=== PATIENT | male | born 2000 | race Caucasian/White ===

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

== ENCOUNTER → 2022-01-09 | Outpatient (CLI) | payer OTHER ==
[2022-01-09 15:38] LABS: Chol/HDL Ratio 3.32 Ratio; LDL Cholesterol,Calculated 91.4 mg/dL (0.0-131.0); VLDL Calculation 10.58 mg/dL (5.00-40.00)
== END | disposition home or self-care (01) ==
LOC: LABWHC1 07:35
DX: E10.9 Type 1 diabetes mellitus without complications (principal); F71 Moderate intellectual disabilities; F91.8 Other conduct disorders
CPT/HCPCS: 36415; 80061; 83036; 84145; 84443

== ENCOUNTER 2022-09-12 15:57 | Inpatient (IN) | payer BC, OTHER ==
[2022-09-12 16:16] LABS: Glucose,Whole Blood 507 mg/dL (70-110)
[2022-09-12] MEDS ORDERED: SODIUM CHLORIDE 0.9% 1,000 ML IV ONE ×2 (16:40→16:41)
[2022-09-12] MEDS ORDERED: ONDANSETRON 4 MG/2 ML VIAL IVP STA (16:49)
--- NOTE | 2022-09-12 17:13 | ED ---
General Adult HPI - General Chief complaint: Recheck/Abnormal Lab/Rx Stated complaint: Vomiting,poss DKA Time Seen by Provider: 09/12/22 16:05 Source: family Mode of arrival: ambulatory Limitations: no limitations - History of Present Illness Initial comments: 22-year-old male with past medical history of ODD, developmental delay, type 1 diabetes presents to the emergency department with hyperglycemia. Mother is at bedside and provides the history. States that he was with his grandma out of state for the past week. He just returned today. Grandma mentioned that his sugars have been running high yesterday. When the patient got home today mother noted that there was a kink in the insulin pump tubing. She changed his CBG monitor as well as his insulin pump tubing and it appeared that his pump is working fine. His glucose was elevated in the 500s. He has had multiple episodes of nausea and vomiting. He denies having any pain however the patient is mostly nonverbal. Patient has a hard time communicating his feelings. No fevers. He has been hospitalized for hyperglycemia previously. HPI is relatively limited. - Related Data Home Medications Medication Instructions Recorded Confirmed Gabapentin [Neurontin] 400 mg PO BID 09/12/22 09/12/22 Insulin Aspart (For Pump) [NovoLOG 0.01 unit SQ-PUMP CONTINUOUS 09/12/22 09/12/22 (For Pump)] OLANZapine [ZyPREXA] 15 mg PO HS 09/12/22 09/12/22 guanFACINE HCL [guanFACINE HCL ER] 4 mg PO DAILY 09/12/22 09/12/22 hydrOXYzine pamoate [Vistaril] 25 mg PO TID PRN 09/12/22 09/12/22 Allergies Allergy/AdvReac Type Severity Reaction Status Date / Time fentanyl Allergy Hallucinati Verified 09/12/22 16:33 ons prednisone AdvReac Increases Verified 09/12/22 16:34 blood sugar Review of Systems ROS Statement: Those systems with pertinent positive or pertinent negative responses have been documented in the HPI. ROS Other: All systems not noted in ROS Statement are negative. Past Medical History Past Medical History: Diabetes Mellitus Additional Past Medical History / Comment(s): ODD History of Any Multi-Drug Resistant Organisms: None Reported Past Surgical History: No Surgical Hx Reported Past Psychological History: No Psychological Hx Reported Smoking Status: Never smoker Past Alcohol Use History: None Reported Past Drug Use History: None Reported - Past Family History Mother Additional Family Medical History / Comment(s): diverticulosis Father Family Medical History: No Reported History General Exam Limitations: physical limitation General appearance: alert, in no apparent distress Head exam: Present: atraumatic, normocephalic, normal inspection Eye exam: Present: normal appearance, PERRL, EOMI. Absent: scleral icterus, conjunctival injection, periorbital swelling ENT exam: Present: normal exam, mucous membranes moist Respiratory exam: Present: normal lung sounds bilaterally. Absent: respiratory distress, wheezes, rales, rhonchi, stridor Cardiovascular Exam: Present: regular rate, normal rhythm, normal heart sounds. Absent: systolic murmur, diastolic murmur, rubs, gallop, clicks GI/Abdominal exam: Present: soft, normal bowel sounds. Absent: distended, tenderness, guarding, rebound, rigid Neurological exam: Present: alert Skin exam: Present: warm, dry, intact, normal color. Absent: rash Course Vital Signs 09/12/22 09/12/22 09/12/22 16:01 17:52 18:37 Temperature 98.4 F Pulse Rate 89 103 H 98 Respiratory 20 18 18 Rate Blood Pressure 110/65 112/60 110/64 O2 Sat by Pulse 99 99 100 Oximetry EKG Findings - EKG Comments: EKG Findings:: EKG demonstrates sinus rhythm with a rate of 99. [place] 165. QRS 106. QTC of 415. Inverted T-wave ST depression V4 through V6, 2, 3, aVF. Medical Decision Making - Medical Decision Making Was pt. sent in by a medical professional or institution (, PA, HARNESS MENDER, urgent care, hospital, or custodial...) When possible be specific @ -No Did you speak to anyone other than the patient for history (EMS, parent, family, police, friend...)? What history was obtained from this source @ -Patient's mother provides a history Did you review nursing and triage notes (agree or disagree)? Why? @ -I reviewed and agree with nursing and triage notes Were old charts reviewed (outside hosp., previous admission, EMS record, old EKG, old radiological studies, urgent care reports/EKG's, custodial records)? Report findings @ -No old charts were reviewed Differential Diagnosis (chest pain, altered mental status, abdominal pain women, abdominal pain men, vaginal bleeding, weakness, fever, dyspnea, syncope, headache, dizziness, GI bleed, back pain, seizure, CVA, palpatations, mental health, musculoskeletal)? @ -Differential Abdominal Pain Men: Appendicitis, cholecystitis, diverticulosis, ischemic bowel, pancreatitis, hepatitis, UTI, gastroenteritis, AAA, incarcerated hernia, bowel obstruction, constipation, inflammatory bowel, hepatitis, peptic ulcer disease, splenic infarction, perforated viscus, testicular torsion, this is not meant to be an all-inclusive list EKG interpreted by me (3pts min.). @ -Yes X-rays interpreted by me (1pt min.). @ -None done CT interpreted by me (1pt min.). @ -None done U/S interpreted by me (1pt. min.). @ -None done What testing was considered but not performed or refused? (CT, X-rays, U/S, labs)? Why? @ -None What meds were considered but not given or refused? Why? @ -None Did you discuss the management of the patient with other professionals (professionals i.e. Dr., PA, HARNESS MENDER, lab, RT, psych nurse, perinatal social worker, buddhist monk, teacher, promotions officer, bilingual patient support caseworker)? Give summary @ -Admitting team, Radha from [facility] Was smoking cessation discussed for >3mins.? @ -No Was critical care preformed (if so, how long)? @ -Yes, 35 minutes for management of insulin drip Were there social determinants of health that impacted care today? How? (Homelessness, low income, unemployed, alcoholism, drug addiction, transportation, low edu. Level, literacy, decrease access to med. care, prison, rehab)? @ -No Was there de-escalation of care discussed even if they declined (Discuss DNR or withdrawal of care, Hospice)? DNR status @ -No What co-morbidities impacted this encounter? (DM, HTN, Smoking, COPD, CAD, Cancer, CVA, ARF, Chemo, Hep., AIDS, mental health diagnosis, sleep apnea, morbid obesity)? @ -Type 1 diabetes mellitus Was patient admitted / discharged? Hospital course, mention meds given and route, prescriptions, significant lab abnormalities, going to OR and other pertinent info. @ -Upon arrival patient is placed into room 9. Thorough history and physical exam is performed. Patient's insulin pump is removed from his body. IV is established laboratory studies are conducted. Patient does have an elevated glucose of 507. He is given a 2 L bolus of normal saline. Laboratory studies reveal a white blood cell count of 25.6. Anion gap is 23. CO2 is low at 19. Lactic acid 5.9. Pt is acetone positive. He does meet all components for DKA. Insulin drip is ordered at this time. Mother was agreeable to admission. Spoke with Radha from [facility] who agreed to admit the patient Undiagnosed new problem with uncertain prognosis? @ -No Drug Therapy requiring intensive monitoring for toxicity (Heparin, Nitro, Insulin, Cardizem)? @ -Insulin drip Were any procedures done? @ -No Diagnosis/symptom? @ -Acute nausea and vomiting, acute DKA Acute, or Chronic, or Acute on Chronic? @ -Acute Uncomplicated (without systemic symptoms) or Complicated (systemic symptoms)? @ -Complicated Side effects of treatment? @ -Hypoglycemia Exacerbation, Progression, or Severe Exacerbation? @ -No Poses a threat to life or bodily function? How? (Chest pain, USA, NM, pneumonia, PE, COPD, DKA, ARF, appy, cholecystitis, CVA, Diverticulitis, Homicidal, Suicidal, threat to staff... and all critical care pts) @ -Yes - Lab Data Result diagrams: 09/13/22 08:43 09/13/22 08:43 Lab Results 09/12/22 09/12/22 09/12/22 Range/Units 16:14 16:42 16:42 WBC 25.6 H (3.8-10.6) k/uL RBC 4.76 (4.30-5.90) m/uL Hgb 13.5 (13.0-17.5) gm/dL Hct 41.9 (39.0-53.0) % MCV 87.9 (80.0-100.0) fL MCH 28.4 (25.0-35.0) pg MCHC 32.3 (31.0-37.0) g/dL RDW 13.1 (11.5-15.5) % Plt Count 397 (150-450) k/uL MPV 8.1 Neutrophils % 91 % Lymphocytes % 3 % Monocytes % 5 % Eosinophils % 0 % Basophils % 0 % Neutrophils # 23.4 H (1.3-7.7) k/uL Lymphocytes # 0.8 L (1.0-4.8) k/uL Monocytes # 1.2 H (0-1.0) k/uL Eosinophils # 0.1 (0-0.7) k/uL Basophils # 0.1 (0-0.2) k/uL Sodium (137-145) mmol/L Potassium (3.5-5.1) mmol/L Chloride (98-107) mmol/L Carbon Dioxide (22-30) mmol/L Anion Gap mmol/L BUN (9-20) mg/dL Creatinine (0.66-1.25) mg/dL Est GFR (CKD-EPI)AfAm (>60 ml/min/1.73 sqM) Est GFR (CKD-EPI)NonAf (>60 ml/min/1.73 sqM) Glucose (74-99) mg/dL POC Glucose (mg/dL) 507 H (70-110) mg/dL POC Glu Cash Manager Liborio Gonzalez Lactic Ac Sepsis Rflx Plasma Lactic Acid Shahriar (0.7-2.0) mmol/L Calcium (8.4-10.2) mg/dL Total Bilirubin (0.2-1.3) mg/dL AST (17-59) U/L ALT (4-49) U/L Alkaline Phosphatase (38-126) U/L Total Protein (6.3-8.2) g/dL Albumin (3.5-5.0) g/dL Urine Color Light Yellow Urine Appearance Clear (Clear) Urine pH 5.0 (5.0-8.0) Ur Specific [place] 1.024 (1.001-1.035) Urine Protein Negative (Negative) Urine Glucose (UA) 4+ H (Negative) Urine Ketones 3+ H (Negative) Urine Blood Negative (Negative) Urine Nitrite Negative (Negative) Urine Bilirubin Negative (Negative) Urine Urobilinogen <2.0 (<2.0) mg/dL Ur Leukocyte Esterase Negative (Negative) Acetone, Qual (Negative) 09/12/22 09/12/22 09/12/22 Range/Units 16:42 16:42 18:15 WBC (3.8-10.6) k/uL RBC (4.30-5.90) m/uL Hgb (13.0-17.5) gm/dL Hct (39.0-53.0) % MCV (80.0-100.0) fL MCH (25.0-35.0) pg MCHC (31.0-37.0) g/dL RDW (11.5-15.5) % Plt Count (150-450) k/uL MPV Neutrophils % % Lymphocytes % % Monocytes % % Eosinophils % % Basophils % % Neutrophils # (1.3-7.7) k/uL Lymphocytes # (1.0-4.8) k/uL Monocytes # (0-1.0) k/uL Eosinophils # (0-0.7) k/uL Basophils # (0-0.2) k/uL Sodium 132 L (137-145) mmol/L Potassium 4.8 (3.5-5.1) mmol/L Chloride 90 L (98-107) mmol/L Carbon Dioxide 19 L (22-30) mmol/L Anion Gap 23 mmol/L BUN 29 H (9-20) mg/dL Creatinine 0.91 (0.66-1.25) mg/dL Est GFR (CKD-EPI)AfAm >90 (>60 ml/min/1.73 sqM) Est GFR (CKD-EPI)NonAf >90 (>60 ml/min/1.73 sqM) Glucose 562 H* (74-99) mg/dL POC Glucose (mg/dL) (70-110) mg/dL POC Glu Cash Manager ID Lactic Ac Sepsis Rflx Y Plasma Lactic Acid Shahriar 5.9 H* (0.7-2.0) mmol/L Calcium 9.9 (8.4-10.2) mg/dL Total Bilirubin 1.4 H (0.2-1.3) mg/dL AST 29 (17-59) U/L ALT 43 (4-49) U/L Alkaline Phosphatase 254 H (38-126) U/L Total Protein 9.3 H (6.3-8.2) g/dL Albumin 5.2 H (3.5-5.0) g/dL Urine Color Urine Appearance (Clear) Urine pH (5.0-8.0) Ur Specific [place] (1.001-1.035) Urine Protein (Negative) Urine Glucose (UA) (Negative) Urine Ketones (Negative) Urine Blood (Negative) Urine Nitrite (Negative) Urine Bilirubin (Negative) Urine Urobilinogen (<2.0) mg/dL Ur Leukocyte Esterase (Negative) Acetone, Qual Positive (Negative) Critical Care Time Critical Care Time: Yes Critical Care Time: 35 minutes Disposition Clinical Impression: DKA (diabetic ketoacidosis) Disposition: ADMITTED IP TO THIS [facility] Condition: Fair Is patient prescribed a controlled substance at d/c from ED?: No Time of Disposition: 18:52 Decision to Admit Reason: Admit from EC Decision Date: 09/12/22 Decision Time: 18:52
[2022-09-12 17:35] LABS: Basophils # (A) 0.1 k/uL (0-0.2); Basophils % (A) 0 %; Eosinophils # (A) 0.1 k/uL (0-0.7); Eosinophils % (A) 0 %; HCT 41.9 % (39.0-53.0); HGB 13.5 gm/dL (13.0-17.5); Lymphocytes # (A) 0.8 k/uL (1.0-4.8); Lymphocytes % (A) 3 %; MCH 28.4 pg (25.0-35.0); MCHC 32.3 g/dL (31.0-37.0); MCV 87.9 fL (80.0-100.0); Mean Platelet Volume 8.1; Monocytes # (A) 1.2 k/uL (0-1.0); Monocytes % (A) 5 %; Neutrophils # (A) 23.4 k/uL (1.3-7.7); Neutrophils % (A) 91 %; Platelet Count 397 k/uL (150-450); RBC 4.76 m/uL (4.30-5.90); RDW 13.1 % (11.5-15.5); WBC 25.6 k/uL (3.8-10.6)
[2022-09-12 17:36] LABS: Appearance,Urine Clear (Clear); Bilirubin,Urine Negative (Negative); Blood,Urine Negative (Negative); Color,Urine Light Yellow; Glucose,Urine (UA) 4+ (Negative); Leukocyte Esterase,Urine Negative (Negative); Nitrite,Urine Negative (Negative); Protein,Urine Negative (Negative); Specific Gravity,Urine 1.024 (1.001-1.035); Urobilinogen,Urine <2.0 mg/dL (<2.0)
[2022-09-12 17:50] LABS: ALT 43 U/L (4-49); AST 29 U/L (17-59); African American GFR (CKD) >90 (>60 ml/min/1.73 sqM); Albumin 5.2 g/dL (3.5-5.0); Alkaline Phosphatase 254 U/L (38-126); Anion Gap 23 mmol/L; Blood Urea Nitrogen 29 mg/dL (9-20); Calcium 9.9 mg/dL (8.4-10.2); Carbon Dioxide 19 mmol/L (22-30); Chloride 90 mmol/L (98-107); Non-African American GFR(CKD) >90 (>60 ml/min/1.73 sqM); Potassium 4.8 mmol/L (3.5-5.1); Sodium 132 mmol/L (137-145); Total Bilirubin 1.4 mg/dL (0.2-1.3); Total Protein 9.3 g/dL (6.3-8.2)
[2022-09-12 18:02] LABS: Glucose 562 mg/dL (74-99)
[2022-09-12 18:32] LABS: Ketones,Urine 3+ (Negative)
[2022-09-12] MEDS ORDERED: INSULIN REGULAR 100 UNIT in SODIUM CHLORIDE 0.9% 100 ML IV SCH (19:00)
[2022-09-12 19:01] LABS: Glucose,Whole Blood 254 mg/dL (70-110)
[2022-09-12] MEDS: D5-0.45% NACL WITH KCL 20MEQ/L 1,000 ML IV SCH (19:45)
[2022-09-12 19:57] LABS: Glucose,Whole Blood 256 mg/dL (70-110)
[2022-09-12 20:21] LABS: Chloride 100 mmol/L (98-107); Glucose 269 mg/dL (74-99); Potassium 4.5 mmol/L (3.5-5.1)
[2022-09-12 20:23] LABS: African American GFR (CKD) >90 (>60 ml/min/1.73 sqM); Anion Gap 12 mmol/L; Blood Urea Nitrogen 23 mg/dL (9-20); Carbon Dioxide 22 mmol/L (22-30); Non-African American GFR(CKD) >90 (>60 ml/min/1.73 sqM); Sodium 134 mmol/L (137-145)
[2022-09-12] MEDS ORDERED: hydrOXYzine pamoate 25 MG CAP PO PRN (20:36)
[2022-09-12] MEDS ORDERED: Phosphorus Replacement Protoco 1 EACH MISC MISCELLANE PRN (20:40)
[2022-09-12] MEDS ORDERED: Potassium Replacement Protocol 1 EACH MISC MISCELLANE PRN (20:40)
[2022-09-12] MEDS ORDERED: Magnesium Replacement Protocol 1 EACH MISC MISCELLANE PRN (20:40)
[2022-09-12] MEDS ORDERED: ONDANSETRON 4 MG/2 ML VIAL IVP PRN (20:40)
[2022-09-12] MEDS: GABAPENTIN 400 MG CAP PO SCH (20:54)
[2022-09-12] MEDS ORDERED: OLANZapine 7.5 MG TAB PO SCH (21:00)
[2022-09-12 21:03] LABS: Glucose,Whole Blood 245 mg/dL (70-110)
[2022-09-12 22:00] LABS: Glucose,Whole Blood 239 mg/dL (70-110)
[2022-09-12 23:04] LABS: Glucose,Whole Blood 218 mg/dL (70-110)
[2022-09-13 00:04] LABS: Glucose,Whole Blood 191 mg/dL (70-110)
[2022-09-13 00:50] LABS: African American GFR (CKD) >90 (>60 ml/min/1.73 sqM); Anion Gap 9 mmol/L; Blood Urea Nitrogen 20 mg/dL (9-20); Carbon Dioxide 25 mmol/L (22-30); Chloride 101 mmol/L (98-107); Glucose 194 mg/dL (74-99); Non-African American GFR(CKD) >90 (>60 ml/min/1.73 sqM); Sodium 135 mmol/L (137-145)
[2022-09-13 01:03] LABS: Potassium 4.2 mmol/L (3.5-5.1)
[2022-09-13 01:08] LABS: Glucose,Whole Blood 144 mg/dL (70-110)
[2022-09-13 02:05] LABS: Glucose,Whole Blood 137 mg/dL (70-110)
[2022-09-13 03:06] LABS: Glucose,Whole Blood 117 mg/dL (70-110)
[2022-09-13 04:03] LABS: Glucose,Whole Blood 128 mg/dL (70-110)
[2022-09-13] MEDS: D5-0.45% NACL WITH KCL 20MEQ/L 1,000 ML IV SCH ×2 (04:03→11:26)
[2022-09-13 05:04] LABS: Glucose,Whole Blood 136 mg/dL (70-110)
[2022-09-13] MEDS ORDERED: INSULIN NPH 100 UNIT/ML 10 ML VIAL SQ ONE (05:29)
[2022-09-13 06:01] LABS: Glucose,Whole Blood 170 mg/dL (70-110)
[2022-09-13] MEDS: INSULIN ASPART (NovoLOG) 100 UNIT/ML VIAL SQ SCH ×4 (07:00→11:48)
[2022-09-13 07:05] LABS: Glucose,Whole Blood 213 mg/dL (70-110)
[2022-09-13] MEDS: GABAPENTIN 400 MG CAP PO SCH (07:42)
[2022-09-13 09:00] LABS: HCT 35.4 % (39.0-53.0); HGB 11.7 gm/dL (13.0-17.5); MCH 28.2 pg (25.0-35.0); MCHC 33.1 g/dL (31.0-37.0); MCV 85.4 fL (80.0-100.0); Mean Platelet Volume 7.5; Platelet Count 299 k/uL (150-450); RBC 4.15 m/uL (4.30-5.90); RDW 13.2 % (11.5-15.5); WBC 14.8 k/uL (3.8-10.6)
[2022-09-13] MEDS ORDERED: GUANFACINE HCL 4 MG PO SCH (09:00)
[2022-09-13 09:14] LABS: African American GFR (CKD) >90 (>60 ml/min/1.73 sqM); Anion Gap 11 mmol/L; Blood Urea Nitrogen 15 mg/dL (9-20); Calcium 8.9 mg/dL (8.4-10.2); Carbon Dioxide 24 mmol/L (22-30); Chloride 102 mmol/L (98-107); Glucose 238 mg/dL (74-99); Non-African American GFR(CKD) >90 (>60 ml/min/1.73 sqM); Potassium 4.1 mmol/L (3.5-5.1); Sodium 137 mmol/L (137-145)
[2022-09-13 09:15] VITALS: TEMP 97.5
[2022-09-13] MEDS ORDERED: SODIUM CHLORIDE 0.9% 1,000 ML IV SCH (10:45)
[2022-09-13 11:34] VITALS: BP 110/73; PULSE 95; RESP 16
[2022-09-13 11:39] LABS: Glucose,Whole Blood 179 mg/dL (70-110)
--- NOTE | 2022-09-13 13:51 | P.HPIM ---
History of Present Illness H&P Date: 09/13/22 Chief Complaint: Hyperglycemia malfunction of insulin pump * 22-year-old male with past medical history of ODD, developmental delay, type 1 diabetes presents to the emergency department with hyperglycemia. * Father at bedside and assists her with history taking * States that he was with his grandma out of state for the past week. * Grandma mentioned that his sugars have been running high * When the patient got home t mother noted that there was a kink in the insulin pump tubing. * She changed his CBG monitor as well as his insulin pump tubing and it appeared that his pump is working fine. His glucose was elevated in the 500s. * He has had multiple episodes of nausea and vomiting. He has been hospitalized for hyperglycemia previously. HPI is relatively limited * Patient was noted to have leukocytosis however no fever, basic metabolic panel was obtained which showed normal serum bicarbonate, blood glucose was within limits 130s to 200 * Patient was admitted and monitored for fluid resuscitation was started on subcu insulin Eishen to go back on insulin pump Review of Systems ROS unobtainable: due to mental status Past Medical History Past Medical History: Diabetes Mellitus Additional Past Medical History / Comment(s): ODD, ADHD, developmentally delayed History of Any Multi-Drug Resistant Organisms: None Reported Past Surgical History: No Surgical Hx Reported Past Anesthesia/Blood Transfusion Reactions: No Reported Reaction Past Psychological History: No Psychological Hx Reported, ADD/ADHD Additional Psychological History / Comment(s): ODD, developmentally delayed Smoking Status: Never smoker Past Alcohol Use History: None Reported Past Drug Use History: None Reported - Past Family History Mother Additional Family Medical History / Comment(s): diverticulosis Father Family Medical History: No Reported History Medications and Allergies Home Medications Medication Instructions Recorded Confirmed Type Gabapentin [Neurontin] 400 mg PO BID 09/12/22 09/12/22 History Insulin Aspart (For Pump) [NovoLOG 0.01 unit SQ-PUMP CONTINUOUS 09/12/22 09/12/22 History (For Pump)] OLANZapine [ZyPREXA] 15 mg PO HS 09/12/22 09/12/22 History guanFACINE HCL [guanFACINE HCL ER] 4 mg PO DAILY 09/12/22 09/12/22 History hydrOXYzine pamoate [Vistaril] 25 mg PO TID PRN 09/12/22 09/12/22 History Allergies Allergy/AdvReac Type Severity Reaction Status Date / Time fentanyl Allergy Hallucinati Verified 09/12/22 16:33 ons prednisone AdvReac Increases Verified 09/12/22 16:34 blood sugar Physical Exam Vitals: Vital Signs Temp Pulse Pulse Resp BP BP Pulse Ox 09/13/22 11:34 95 16 110/73 100 09/13/22 08:00 97.5 F L 111 H 17 127/66 93 L 09/13/22 03:17 98.2 F 106 H 16 102/55 97 09/12/22 23:18 98.1 F 94 14 93/55 97 09/12/22 20:20 98.7 F 98 18 113/60 98 09/12/22 18:37 98 18 110/64 100 09/12/22 17:52 103 H 18 112/60 99 09/12/22 16:01 98.4 F 89 20 110/65 99 Intake and Output 09/12/22 09/13/22 09/13/22 22:59 06:59 14:59 Intake Total 13.202 23.843 240.412 Balance 13.202 23.843 240.412 Intake: Intake, IV Titration 13.202 23.843 0.412 Amount Insulin Regular 100 unit 13.202 23.843 0.412 In Sodium Chloride 0.9% 100 ml @ 0.1 UNITS/KG/HR 5.956 mls/hr IV .[id number] [facility] Rx#:[id number] Oral 240 Other: Weight 58.967 kg PHYSICAL EXAMINATION: GENERAL: The patient is alert , cognitive impairment noted however appears at baseline HEENT: Pupils are round and equally reacting to light. EOMI. No scleral icterus. No conjunctival pallor. Normocephalic, atraumatic. No pharyngeal erythema. No thyromegaly. CARDIOVASCULAR: S1 and S2 present. No murmurs, rubs, or gallops. Tachycardia noted PULMONARY: Chest is clear to auscultation, no wheezing or crackles. ABDOMEN: Soft, nontender, nondistended, normoactive bowel sounds. No palpable organomegaly. MUSCULOSKELETAL: No joint swelling or deformity. EXTREMITIES: No cyanosis, clubbing, or pedal edema. NEUROLOGICAL: Neurologically at baseline SKIN: No rashes. Results CBC & Chem 7: 09/13/22 08:43 09/13/22 08:43 Labs: Abnormal Lab Results - Last 24 Hours (Table) 09/12/22 09/12/22 09/12/22 Range/Units 16:14 16:42 16:42 WBC 25.6 H (3.8-10.6) k/uL RBC (4.30-5.90) m/uL Hgb (13.0-17.5) gm/dL Hct (39.0-53.0) % Neutrophils # 23.4 H (1.3-7.7) k/uL Lymphocytes # 0.8 L (1.0-4.8) k/uL Monocytes # 1.2 H (0-1.0) k/uL Sodium (137-145) mmol/L Chloride (98-107) mmol/L Carbon Dioxide (22-30) mmol/L BUN (9-20) mg/dL Creatinine (0.66-1.25) mg/dL Glucose (74-99) mg/dL POC Glucose (mg/dL) 507 H (70-110) mg/dL Plasma Lactic Acid Shahriar (0.7-2.0) mmol/L Total Bilirubin (0.2-1.3) mg/dL Alkaline Phosphatase (38-126) U/L Total Protein (6.3-8.2) g/dL Albumin (3.5-5.0) g/dL Urine Glucose (UA) 4+ H (Negative) Urine Ketones 3+ H (Negative) 09/12/22 09/12/22 09/12/22 Range/Units 16:42 16:42 18:58 WBC (3.8-10.6) k/uL RBC (4.30-5.90) m/uL Hgb (13.0-17.5) gm/dL Hct (39.0-53.0) % Neutrophils # (1.3-7.7) k/uL Lymphocytes # (1.0-4.8) k/uL Monocytes # (0-1.0) k/uL Sodium 132 L (137-145) mmol/L Chloride 90 L (98-107) mmol/L Carbon Dioxide 19 L (22-30) mmol/L BUN 29 H (9-20) mg/dL Creatinine (0.66-1.25) mg/dL Glucose 562 H* (74-99) mg/dL POC Glucose (mg/dL) 254 H (70-110) mg/dL Plasma Lactic Acid Shahriar 5.9 H* (0.7-2.0) mmol/L Total Bilirubin 1.4 H (0.2-1.3) mg/dL Alkaline Phosphatase 254 H (38-126) U/L Total Protein 9.3 H (6.3-8.2) g/dL Albumin 5.2 H (3.5-5.0) g/dL Urine Glucose (UA) (Negative) Urine Ketones (Negative) 09/12/22 09/12/22 09/12/22 Range/Units 19:52 19:56 21:02 WBC (3.8-10.6) k/uL RBC (4.30-5.90) m/uL Hgb (13.0-17.5) gm/dL Hct (39.0-53.0) % Neutrophils # (1.3-7.7) k/uL Lymphocytes # (1.0-4.8) k/uL Monocytes # (0-1.0) k/uL Sodium 134 L (137-145) mmol/L Chloride (98-107) mmol/L Carbon Dioxide (22-30) mmol/L BUN 23 H (9-20) mg/dL Creatinine (0.66-1.25) mg/dL Glucose 269 H (74-99) mg/dL POC Glucose (mg/dL) 256 H 245 H (70-110) mg/dL Plasma Lactic Acid Shahriar (0.7-2.0) mmol/L Total Bilirubin (0.2-1.3) mg/dL Alkaline Phosphatase (38-126) U/L Total Protein (6.3-8.2) g/dL Albumin (3.5-5.0) g/dL Urine Glucose (UA) (Negative) Urine Ketones (Negative) 09/12/22 09/12/22 09/13/22 Range/Units 21:59 23:01 00:01 WBC (3.8-10.6) k/uL RBC (4.30-5.90) m/uL Hgb (13.0-17.5) gm/dL Hct (39.0-53.0) % Neutrophils # (1.3-7.7) k/uL Lymphocytes # (1.0-4.8) k/uL Monocytes # (0-1.0) k/uL Sodium 135 L (137-145) mmol/L Chloride (98-107) mmol/L Carbon Dioxide (22-30) mmol/L BUN (9-20) mg/dL Creatinine (0.66-1.25) mg/dL Glucose 194 H (74-99) mg/dL POC Glucose (mg/dL) 239 H 218 H (70-110) mg/dL Plasma Lactic Acid Shahriar (0.7-2.0) mmol/L Total Bilirubin (0.2-1.3) mg/dL Alkaline Phosphatase (38-126) U/L Total Protein (6.3-8.2) g/dL Albumin (3.5-5.0) g/dL Urine Glucose (UA) (Negative) Urine Ketones (Negative) 09/13/22 09/13/22 09/13/22 Range/Units 00:02 01:05 02:03 WBC (3.8-10.6) k/uL RBC (4.30-5.90) m/uL Hgb (13.0-17.5) gm/dL Hct (39.0-53.0) % Neutrophils # (1.3-7.7) k/uL Lymphocytes # (1.0-4.8) k/uL Monocytes # (0-1.0) k/uL Sodium (137-145) mmol/L Chloride (98-107) mmol/L Carbon Dioxide (22-30) mmol/L BUN (9-20) mg/dL Creatinine (0.66-1.25) mg/dL Glucose (74-99) mg/dL POC Glucose (mg/dL) 191 H 144 H 137 H (70-110) mg/dL Plasma Lactic Acid Shahriar (0.7-2.0) mmol/L Total Bilirubin (0.2-1.3) mg/dL Alkaline Phosphatase (38-126) U/L Total Protein (6.3-8.2) g/dL Albumin (3.5-5.0) g/dL Urine Glucose (UA) (Negative) Urine Ketones (Negative) 09/13/22 09/13/22 09/13/22 Range/Units 03:04 04:01 05:01 WBC (3.8-10.6) k/uL RBC (4.30-5.90) m/uL Hgb (13.0-17.5) gm/dL Hct (39.0-53.0) % Neutrophils # (1.3-7.7) k/uL Lymphocytes # (1.0-4.8) k/uL Monocytes # (0-1.0) k/uL Sodium (137-145) mmol/L Chloride (98-107) mmol/L Carbon Dioxide (22-30) mmol/L BUN (9-20) mg/dL Creatinine (0.66-1.25) mg/dL Glucose (74-99) mg/dL POC Glucose (mg/dL) 117 H 128 H 136 H (70-110) mg/dL Plasma Lactic Acid Shahriar (0.7-2.0) mmol/L Total Bilirubin (0.2-1.3) mg/dL Alkaline Phosphatase (38-126) U/L Total Protein (6.3-8.2) g/dL Albumin (3.5-5.0) g/dL Urine Glucose (UA) (Negative) Urine Ketones (Negative) 09/13/22 09/13/22 09/13/22 Range/Units 06:00 06:58 08:43 WBC 14.8 H (3.8-10.6) k/uL RBC 4.15 L (4.30-5.90) m/uL Hgb 11.7 L (13.0-17.5) gm/dL Hct 35.4 L (39.0-53.0) % Neutrophils # (1.3-7.7) k/uL Lymphocytes # (1.0-4.8) k/uL Monocytes # (0-1.0) k/uL Sodium (137-145) mmol/L Chloride (98-107) mmol/L Carbon Dioxide (22-30) mmol/L BUN (9-20) mg/dL Creatinine (0.66-1.25) mg/dL Glucose (74-99) mg/dL POC Glucose (mg/dL) 170 H 213 H (70-110) mg/dL Plasma Lactic Acid Shahriar (0.7-2.0) mmol/L Total Bilirubin (0.2-1.3) mg/dL Alkaline Phosphatase (38-126) U/L Total Protein (6.3-8.2) g/dL Albumin (3.5-5.0) g/dL Urine Glucose (UA) (Negative) Urine Ketones (Negative) 09/13/22 09/13/22 Range/Units 08:43 11:37 WBC (3.8-10.6) k/uL RBC (4.30-5.90) m/uL Hgb (13.0-17.5) gm/dL Hct (39.0-53.0) % Neutrophils # (1.3-7.7) k/uL Lymphocytes # (1.0-4.8) k/uL Monocytes # (0-1.0) k/uL Sodium (137-145) mmol/L Chloride (98-107) mmol/L Carbon Dioxide (22-30) mmol/L BUN (9-20) mg/dL Creatinine 0.63 L (0.66-1.25) mg/dL Glucose 238 H (74-99) mg/dL POC Glucose (mg/dL) 179 H (70-110) mg/dL Plasma Lactic Acid Shahriar (0.7-2.0) mmol/L Total Bilirubin (0.2-1.3) mg/dL Alkaline Phosphatase (38-126) U/L Total Protein (6.3-8.2) g/dL Albumin (3.5-5.0) g/dL Urine Glucose (UA) (Negative) Urine Ketones (Negative) Thrombosis Risk Factor Assmnt - DVT/VTE Prophylaxis DVT/VTE Prophylaxis: Mechanical Prophylaxis ordered - Choose All That Apply Any of the Below Risk Factors Present?: No Other Risk Factors: No Other congenital or acquired thrombophilia - If yes, enter type in comment: No Thrombosis Risk Factor Assessment Level: Very Low Risk Assessment and Plan Assessment: * Diabetes mellitus status post insulin pump use * Hyperglycemia on admission * Leukocytosis and reactive * Patient was admitted to medical floor started on fluid resuscitation, patient was started on Lantus as well as correctional insulin. Home medications were reviewed and reconciled. * Glucose was closely monitored and remained within limits. Follow-up plan of care discussed with patient's father at bedside patient to be discharged home same day patient was resuscitated with fluid * on top dyeing machine tender baseline sinus tachycardia noted * Code status is full code Time with Patient: Less than 30
--- NOTE | 2022-09-13 13:55 | P.DS ---
Providers Date of admission: 09/12/22 18:54 Attending physician: Kenisha Willams Primary care physician: [facility] Course: 22-year-old male with past medical history of ODD, developmental delay, type 1 diabetes presents to the emergency department with hyperglycemia. Mother is at bedside and provides the history. States that he was with his grandma out of state for the past week. He just returned today. Grandma mentioned that his sugars have been running high yesterday. When the patient got home today mother noted that there was a kink in the insulin pump tubing. She changed his CBG monitor as well as his insulin pump tubing and it appeared that his pump is working fine. His glucose was elevated in the 500s. He has had multiple episodes of nausea and vomiting. He denies having any pain however the patient is mostly nonverbal. Patient has a hard time communicating his feelings. No fevers. He has been hospitalized for hyperglycemia previously. HPI is relatively limited. Assessment: * Diabetes mellitus status post insulin pump use * Hyperglycemia on admission * Leukocytosis and reactive * Patient was admitted to medical floor started on fluid resuscitation, patient was started on Lantus as well as correctional insulin. Home medications were reviewed and reconciled. * Glucose was closely monitored and remained within limits. Follow-up plan of care discussed with patient's father at bedside patient to be discharged home same day patient was resuscitated with fluid * on automatic maintainer baseline sinus tachycardia noted, however baseline anxiety Patient Condition at Discharge: Fair Plan - Discharge Summary Discharge Rx Participant: No New Discharge Prescriptions: Continue guanFACINE HCL [guanFACINE HCL ER] 4 mg PO DAILY OLANZapine [ZyPREXA] 15 mg PO HS Gabapentin [Neurontin] 400 mg PO BID hydrOXYzine pamoate [Vistaril] 25 mg PO TID PRN PRN Reason: Anxiety Insulin Aspart (For Pump) [NovoLOG (For Pump)] 0.01 unit SQ-PUMP CONTINUOUS Discharge Medication List Gabapentin [Neurontin] 400 mg PO BID 09/12/22 [History] Insulin Aspart (For Pump) [NovoLOG (For Pump)] 0.01 unit SQ-PUMP CONTINUOUS 09/12/22 [History] OLANZapine [ZyPREXA] 15 mg PO HS 09/12/22 [History] guanFACINE HCL [guanFACINE HCL ER] 4 mg PO DAILY 09/12/22 [History] hydrOXYzine pamoate [Vistaril] 25 mg PO TID PRN 09/12/22 [History] Follow up Appointment(s)/Referral(s): Lucius Sierra DO [Primary Care Provider] - 1-2 days Activity/Diet/Wound Care/Special Instructions: Continue to monitor blood glucose post discharge Continue on baseline diet Continue home insulin pump use Encourage oral intake and hydration Discharge Disposition: HOME SELF-CARE
[2022-09-13] MEDS ORDERED: INSULIN DETEMIR (LEVEMIR) 100 UNIT/ML SYR SQ SCH (21:00)
== END 2022-09-13 14:05 | disposition home or self-care (01) | DRG 638 ==
LOC: EC 15:57 → EEVIPCON 15:57 → 3SCARD 18:54
PROVIDERS: ADMIT Hospitalist; ATTEND Hospitalist
DX: E10.10 Type 1 diabetes mellitus with ketoacidosis without coma (principal); T85.614A Breakdown (mechanical) of insulin pump, initial encounter; F41.9 Anxiety disorder, unspecified; Y74.2 Prosthetic and other implants, materials and accessory general hospital and personal-use devices associated with adverse incidents; D72.829 Elevated white blood cell count, unspecified; Z28.310 Unvaccinated for COVID-19; F91.3 Oppositional defiant disorder; F90.9 Attention-deficit hyperactivity disorder, unspecified type; R00.0 Tachycardia, unspecified; Z88.5 Allergy status to narcotic agent; Z88.8 Allergy status to other drugs, medicaments and biological substances; Z96.41 Presence of insulin pump (external) (internal); Z79.4 Long term (current) use of insulin; Z79.899 Other long term (current) drug therapy
CPT/HCPCS: 36415; 80048; 80051; 80053; 81003; 82009; 82565; 82947; 83605; 83735; 84100; 84520; 85025; 85027; 93005; 96361; 96374; 99291

== ENCOUNTER 2024-08-29 18:09 | Emergency (ER) | payer BC, OTHER ==
[2024-08-29 18:25] VITALS: BP 128/86; PULSE 120; RESP 18; TEMP 98.9
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
[2024-08-29 20:50] LABS: Amphetamine Screen,Urine Not Detected (NotDetected); Barbiturate Screen,Urine Not Detected (NotDetected); Benzodiazepines Screen,Urine Not Detected (NotDetected); Cocaine Screen,Urine Not Detected (NotDetected); Methadone Screen, Urine Not Detected (NotDetected); Opiate Screen,Urine Not Detected (NotDetected); Oxycodone Screen, Urine Not Detected (NotDetected); Phencyclidine Screen,Urine Not Detected (NotDetected); Tricyclic Antidepressant,Urine Not Detected (NotDetected); Urn Cannabinoid Scrn Not Detected (NotDetected)
== END 2024-08-29 21:58 | disposition home or self-care (01) ==
LOC: EC 18:09
DX: Z04.6 Encounter for general psychiatric examination, requested by authority (principal); E10.9 Type 1 diabetes mellitus without complications; F79 Unspecified intellectual disabilities; Z88.8 Allergy status to other drugs, medicaments and biological substances
CPT/HCPCS: 80306; 82075; 99285